=== PATIENT | female | born 1985 ===

== ENCOUNTER 2019-07-01 22:07 | Inpatient (IN) | payer MEDICARE, SELFPAY ==
--- NOTE | 2019-07-01 22:15 | DI.CT_ITS ---
EXAM: CT HEAD WO CLINICAL HISTORY: altered, confused. TECHNIQUE: Imaging Protocol: Axial computed tomography images with coronal and sagittal reformatted images were created and reviewed COMPARISON: No exams were available for comparison FINDINGS: The ventricular system is normal in appearance. No evidence of acute intracranial hemorrhage, mass effect, or midline shift. The orbital structures are unremarkable. The temporal bone structures appear intact. Calvarium: Normal. Visualized Paranasal sinuses/Mastoids: Clear. IMPRESSION: Normal cranial CT. RADIATION DOSE DELIVERED: Total DLP DATA REPOSITORY: All CT scans at this facility are submitted to the National Radiology Data Registry (NRDR) Dose Index Registry (DIR) with the [employer] (ACR). RADIATION OPTIMIZATION: All CT scans at this facility use at least one of these dose optimization te chniques: automated exposure control; mA and/or kV adjustment per patient size (includes targeted exa ms where dose is matched to clinical indication); or iterative reconstruction.
--- NOTE | 2019-07-01 22:16 | DI.RAD_ITS ---
EXAM: XR CHEST 1V IN DI DEPT CLINICAL HISTORY: altered, confused. TECHNIQUE: 2D digital imaging was performed. COMPARISON: No exams were available for comparison FINDINGS: LUNGS: Clear. No pleural abnormality seen. HEART: Normal. MEDIASTINUM: Normal. OTHER FINDINGS: None. IMPRESSION: No acute pulmonary findings. DATA REPOSITORY: RADIATION DOSE DELIVERED:
--- NOTE | 2019-07-01 22:23 | ED.GENADUL_ITS ---
Discharge Plan Disposition Patient Disposition: [facility] INPATIENT Condition: Stable Discharge Details Chief Complaint: AMS/LOC Clinical Impression: Acute alteration in mental status, Anemia, Sickle cell anemia with crisis Primary Care Provider: Laney,Local ED Provider: Karnthi Botello Home Meds and New Rx's Prescriptions: No Action folic acid 1 mg Tablet 1 mg PO DAILY RF: 0 ibuprofen 600 mg Tablet 600 mg PO Q6H PRNRF: 0 oxycodone 10 mg Tablet 10 mg PO Q4H PRNRF: 0 B12 5,000-100 mcg Lozenge SUBLINGUAL RF: 0 hydroxyurea (sickle cell) 1,000 mg Tablet 1,000 mg PO DAILY RF: 0 Medical Decision Making This is a 34-year-old -Luxembourger female who is a notably poor historian with a known past medical history of sickle cell disease, who presents today for altered mental status. Per [facility] police [place] car had run out of gas. Upon their encounter she thought she was still in [place], thought her children were with her, which they were not, and was notably unaware of the current situation. She had no complaints at that time, and was not able to explain what was going on at all, was notably confused. She was brought to the ER for further evaluation. Upon EMSs evaluation she was ANO x3, vital signs are stable blood sugar normal, she was brought to the ER for further evaluation. Patient is a notably poor historian with poor insight at this time, she has no complaints in particular review of systems does bring about mild complaint of frontal headache. She denies neck pain chest pain shortness of breath abdominal pain nausea, vomiting, diarrhea, fever or chills. She denies IV or illicit drug use, alcohol use, or other abnormality. She does not know why she is up here, she does not know where her children are. She is unable to add anything additional to the history. Physical exam demonstrates no focal neurologic deficits, no nuchal rigidity, no meningiomas. Mental status is certainly altered though, she is ANO x3 however she definitely has atypical thinking with multiple verbal statements saying that her children are under the seats of her car, in heaven, and right beside her. She also keeps talking about her recent conversations with her mother who is actually been for some time. Mucous membranes are mildly dry, differential is notably broad. Patient does not demonstrate clinical evidence of meningitis at this time, uncertain if there is a mental health or psychiatric issue at play, versus a metabolic etiology. Patient is from [place], we otherwise do not know her history, coronavirus is on the differential but unlikely. She does have a known history of sickle cell disease, could be a component of a sickling crisis at this time however her otherwise general lack of pain would make this slightly less likely. We will rehydrate, evaluate with CT imaging of the head, laboratory work-up. No current clinical indication for lumbar puncture. [place] [employer] has provided us with a phone number of her Andre, whom we we contacted for additional information, he does state that the patient may have a history of bipolar depression but states that she has never had any altered mental state. He is uncertain what the patient's children are. We will continue to monitor closely and reassess. We will evaluate for coronavirus. 11:50 PM We have again been contacted by [place] [employer], and it appears that Andre's actually her ex-, and there is a no contact order that has been put in place between them. This was discussed with the [facility] police by the [facility] police. When reviewed with the patient she made it clear that she does not want any information to be discussed with him at this time. However the patient's next of kin are her brother Steve, and her daughter jeff. Per [place] [employer] police have been contacted, the patient's children are safe in [place]. We were able to get a home address, and when contacting the local hospitals we were able to procure HPI from last year when the patient had a sickle cell crisis. Per review of records at that time does appear that she had a blood clot during in the past which was provoked and is not on anticoagulation, has required transfusions for sickle cell crisis, multiple episodes of sickle cell crisis, and chronic hyperbilirubinemia but no other significant psychiatric history can be elicited from that HPI. Of note there is been a notable delay in the laboratory work-up as the patient has had multiple episodes of hemolysis of the blood that has been drawn. 2 AM Laboratory work-up has returned, patient's hemoglobin is 7.8, platelets 559, reticulocyte count notably elevated at 10.9, renal function stable, lactate normal, lactate dehydrogenase elevated at 381. Troponin normal. CRP negative, pending urinalysis urine drug screen. Alcohol level normal. Procalcitonin normal. With no evidence of significant elevation in infection markers, and wit h the patient's hemoglobin being 7.8, certainly does shift my differential to a sickle cell crisis and dehydration potentially causing her mental status changes. Symptoms at this time appear inconsistent with an infectious etiology. Based on exam and disposition at this time there is no clinical indication for lumbar puncture. Psychiatric episode is certainly not been ruled out though. CT scan of the head is negative for acute process per virtual radiology's x-ray of the chest shows no evidence of infiltrate per virtual radiology. We will type and screen, start 2 units of PRBCs, she has been hydrated with 2 L of normal saline at this point. Mental status is unchanged currently. Will contact hospitalist for admission. Of note the patient's d-dimer is elevated, this was ordered for further evaluation of coronavirus. Clinically she does not demonstrate signs or symptoms concerning for PE. She denies chest pain, she has no tachycardia, tachypnea, hypoxemia. At this time I feel that her signs and symptoms seem to be clinically consistent with sickle cell crisis, notable dehydration. 2:30 AM I have contacted the hospitalist Dr. Kovacs, which discussed the case together in depth. Patient will be admitted for further management and evaluation, continued blood administration. I have extensively reviewed the treatment plan with the patient. I have addressed all patient concerns at this time. I have also discussed the plan with the admitting physician and they agree with the current assessment and plan and have agreed to assume responsibility for the patient. All parties demonstrate verbal understanding and agreement with our assessment and plan at this time. EKG 23: 29 Rate 91, intervals normal, sinus rhythm, inverted T wave in V1, no significant ST elevations or depressions, inverted T wave also present in lead III. No significant depression though. No signs of STEMI. FINDINGS: Lungs: Unremarkable. No consolidation. Pleural space: Unremarkable. No pleural effusion. No pneumothorax. Heart/Mediastinum: Unremarkable. No cardiomegaly. Bones/joints: Unremarkable. IMPRESSION: No acute findings. Thank you for allowing us to participate in the care of your patient. Dictated and Authenticated by: Jose Bruce MD 07/01/2019 11:38 PM Eastern Time ([place] & [place]) FINDINGS: Brain: Normal. No hemorrhage. Unremarkable white matter. No mass effect. Ventricles: Normal. No ventriculomegaly. Bones/joints: Unremarkable. No acute fracture. Sinuses: Visualized sinuses are unremarkable. No fluid levels. Mastoid air cells: Visualized mastoid air cells are well aerated. Soft tissues: Unremarkable. IMPRESSION: No acute intracranial abnormality. Thank you for allowing us to participate in the care of your patient. Dictated and Authenticated by: Jose Bruce MD 07/01/2019 11:37 PM Eastern Time ([place] & [place]) HPI General Date/Time Provider Initiated Documentation: 07/01/19 22:14 . HPI Narrative: This is a 34-year-old -Luxembourger female who is a notably poor historian with a known past medical history of sickle cell disease, who presents today for altered mental status. Per [facility] police she [place] car had run out of gas. Upon their encounter she thought she was still in [place], thought her children were with her, which they were not, and was notably unaware of the current situation. She had no complaints at that time, and was not able to explain what was going on at all, w as notably confused. She was brought to the ER for further evaluation. Upon EMSs evaluation she was ANO x3, vital signs are stable blood sugar normal, she was brought to the ER for further evaluation. Patient is a notably poor historian with poor insight at this time, she has no complaints in particular review of systems does bring about mild complaint of frontal headache. She denies neck pain chest pain shortness of breath abdominal pain nausea, vomiting, diarrhea, fever or chills. She denies IV or illicit drug use, alcohol use, or other abnormality. She does not know why she is up here, she does not know where her children are. She is unable to add anything additional to the history. Related Data Home Medications Medication Instructions Recorded Confirmed cyanocobalamin-cobamamide [B12] leta SUBLINGUAL 07/02/19 folic acid 1 mg PO DAILY 07/02/19 07/02/19 hydroxyurea (sickle cell) 1,000 mg PO DAILY 07/02/19 07/02/19 ibuprofen 600 mg PO Q6H PRN 07/02/19 07/02/19 oxycodone 10 mg PO Q4H PRN 07/02/19 07/02/19 Allergies Allergy/AdvReac Type Severity Reaction Status Date / Time No Known Allergies Allergy Unverified 07/01/19 23:59 Review of Systems All systems reviewed & are unremarkable except as noted in HPI and below PFSH Medical History (Updated 07/02/19 @ 02:50 by Darlene Ricci) Anemia, chronic disease (Acute) Herpes (Acute) Pulmonary embolism (Chronic) Sickle cell anemia with crisis (Acute) Surgical History (Updated 07/02/19 @ 02:52 by Darlene Ricci) History of cholecystectomy (Chronic) Social History Smoking/Tobacco Use Status: Never Alcohol Intake: never Substance use type: does not use Do you feel safe at home: Yes Do you feel safe in your relationship?: Yes Additional Social history: above as answered by pt Exam Narrative Exam Narrative: 1.Const: Well-nourished, Well-developed, appearing stated age 2.Eyes: PERRL, no conjunctival injection, and symmetrical lids. 3.ENT: Atraumatic external nose and ears. Moist MM. Neck: Symmetric, trachea midline, No thyromegaly. Patient demonstrates good movement of cervical neck. There is no nuchal rigidity, no nuchal tenderness. Patient is able to flex the neck without any difficulty or significant pain. Negative Kernig's and Brudzinski sign. There is no evidence of raccoon eyes, olivier sign, CSF rhinorrhea, mastoid tenderness, cranial crepitus, hemotympanum, exophthalmos, or hyphema. Patient demonstrates intact dentition with no signs of tooth avulsion or fracture, no signs of jaw deformity, no evidence of a LeFort's fracture, with an intact palate, nose and orbital region. There is no evidence of a nasal septal hematoma. No proptosis. Jaw closes symmetrically. Airway is clear. 4.CVS: +S1/S2, No murmurs or gallops. Peripheral pulses 2+ and equal in all extremities. Brisk capillary refill in all extremities. 5.RESP: Unlabored respiratory effort. Clear to auscultation bilaterally. No wheezes rales or rhonchi 6.GI: Soft, Nontender/Nondistended, No hepatosplenomegaly. No guarding or rebound. 7.MSK: Normocephalic/Atraumatic, Extremities w/o deformity or ttp No cyanosis or clubbing, Normal movement of all extremities 8.Skin: Warm, Dry. No rashes or lesions. 9.Neuro: windows desktop engineer II-XII grossly intact. Sensation grossly intact, no focal neurologic deficits. All 6 cardinal planes of vision are fully intact. No evidence of rotatory or vertical nystagmus. The patient demonstrated a normal rgljvw-onjq-vigpez, good dexterity. There was no evidence of dysdiadochokinesia. Patient was able to ambulate without difficulty. There was no wide-based gait. Romberg testing was normal. Wxif-ax-mopr testing was normal. Sensation was intact bilaterally as well as muscle strength bilaterally for all extremities. Patient was able to verbalize butter cup with no slurring, or miss pronunciation. 10.Psych: (AAO) x3, she knows the month, year, president, but does not know the current location. She certainly lacks insight. To the nurse she has been been making statements that her children are in heaven, but at the same time the right here with her. She has had makes other atypical statements that they are under the seat in her car. She also states that she has been calling her mother however the mother has actually been for the last few years. Course Lab/Test Results Lab/Test Results: 07/01/19 22:15 Blood Blood Culture - Pending 07/01/19 22:15 Blood Blood Culture - Pending
[2019-07-01] MEDS: Normal Saline 1,000 ML 1000 ML IV (22:30)
[2019-07-01 22:55] VITALS: BP 110/68; PULSE 81; RESP 16; TEMP 36.3; O2SAT 97
[2019-07-01 23:24] VITALS: RESP 14
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
--- NOTE | 2019-07-01 23:37 | DI.VRAD_ITS ---
PROCEDURE INFORMATION: Exam: CT Head Without Contrast Exam date and time: 07/01/2019 11:20 PM Age: 34 years old Clinical indication: Other: Altered, confused TECHNIQUE: Imaging protocol: Computed tomography of the head without contrast. COMPARISON: No relevant prior studies available. FINDINGS: Brain: Normal. No hemorrhage. Unremarkable white matter. No mass effect. Ventricles: Normal. No ventriculomegaly. Bones/joints: Unremarkable. No acute fracture. Sinuses: Visualized sinuses are unremarkable. No fluid levels. Mastoid air cells: Visualized mastoid air cells are well aerated. Soft tissues: Unremarkable. IMPRESSION: No acute intracranial abnormality. Dictated and Authenticated by: Jose Bruce MD. Ordering:FAHAD Crisostomo MD
--- NOTE | 2019-07-01 23:38 | DI.VRAD_ITS ---
PROCEDURE INFORMATION: Exam: XR Chest, 1 View Exam date and time: 07/01/2019 11:16 PM Age: 34 years old Clinical indication: Other: Altered, confused TECHNIQUE: Imaging protocol: XR of the chest Views: 1 view. COMPARISON: No relevant prior studies available. FINDINGS: Lungs: Unremarkable. No consolidation. Pleural space: Unremarkable. No pleural effusion. No pneumothorax. Heart/Mediastinum: Unremarkable. No cardiomegaly. Bones/joints: Unremarkable. IMPRESSION: No acute findings. Dictated and Authenticated by: Jose Bruce MD. Ordering:FAHAD Crisostomo MD
--- NOTE | 2019-07-01 23:46 | NUR.NOTE ---
Nursing Note: pt back and forth to the bathroom- instructed to give urine sample. Did not leave sample, though urinated and flushed.
[2019-07-01 23:48] VITALS: PULSE 87; RESP 20; O2SAT 97
[2019-07-01 23:50] VITALS: PULSE 86; RESP 21
[2019-07-02] VITALS (46 sets, daily range): BP systolic 97–131; BP diastolic 61–91; PULSE 73–115; RESP 12–23; TEMP 36.1–37.4; O2SAT 93–100
[2019-07-02] MEDS: Normal Saline 1,000 ML 1000 ML IV (00:15)
--- NOTE | 2019-07-02 00:37 | NUR.NOTE ---
Nursing Note: Pt has had multiple phone calls from seven who claims to be her . Per VSP, this is ex and has order of no contact. Per [facility], no information to be given regarding pt or children. Seven was quite irate in hearing no further information could be given no one gets information about her except through me- directed to nursing stocking and box shop supervisor for further phone call and to place complaint about this medical underwriter.
--- NOTE | 2019-07-02 00:46 | NUR.NOTE ---
Nursing Note: Asked pt is there was anyone I could call for her, pt stated no. Asked if she had family, pt stated My mother, but she's .
--- NOTE | 2019-07-02 00:49 | NUR.NOTE ---
Nursing Note: Pt asked who Andre was, states he's my kids father. I asked pt directly if she would want him to have any information about her care or treatment here today- pt states no. This conversation happened in the presence of Darlene Rosales and Carolyn. Floor Scrubber aware.
[2019-07-02 00:50] LABS: BE (Venous) -0.6 mmol/L (-3-3); HCO3 (Venous) 24 mmol/L (22-28); O2 Sat (Venous) 83 % (70-80); TCO2 (Venous) 23 mmol/L (22-29); pCO2 (Venous) 39 mm/Hg (34-47); pO2 (Venous) 54 mm/Hg (28-44)
[2019-07-02 00:57] LABS: Lactate 0.8 mmol/L (0.6-1.4)
[2019-07-02 01:13] LABS: Ammonia < 10 umol/L (11-32)
[2019-07-02 01:17] LABS: HCT 22.5 % (36.0-46.0); HGB 7.8 g/dL (12.0-15.5); Mean Corp. HGB Concentration 34.7 g/dL (32.0-36.0); Mean Corpuscular Hemoglobin 29.7 pg (27.0-33.0); Mean Corpuscular Volume 85.6 fL (80-95); Mean Platelet Volume 8.5 fL (8.0-11.0); RBC 2.63 m/cumm (4.00-5.20); RBC Distribution Width 20.1 % (11.7-14.6); Reticulocyte 10.9 % (0.5-2.4); White Blood Cell Count 13.76 k/cumm (4.4-10.8)
--- NOTE | 2019-07-02 01:21 | NUR.NOTE ---
Nursing Note: Patient's estranged , Andre Bonilla, was transferred to this scribe after asking to speak to supervisor motorcycle repair shop. Per report of ER staff, [facility] Police had advised ER staff to not release information about the patient to Andre after learning of a restraining order placed by patient on her . This information was found out after patient's had been notified by police and then updated by ER staff. Andre was very angry and yelling that he has a right to know about the mother of his children. This scribe attempted multiple times to explain about privacy laws and that we are not able to give him any information. Upon learning about the restraining order, this scribe advised Andre that he should contact [facility] Police if he has any additional questions. Andre stated he would have his contractor field hauling call the hospital and hung up. Moments later, Andre's sister (the patient's sister in law), called and insisted on speaking to a supervisor motorcycle repair shop and began to yell that she has a right as a family member to have access to her sister in law's condition. This scribe again, attempted to explain HIPPA. The patient's sister in law began to yell stating that the patient does not have a restraining order on her, so she should be able to know why Shaylee is in a mental hospital having delusions. This scribe eventually had to end the call as both the sister in law and her brother (Andre) were yelling into the phone. Jeyson then called a few moments later stating that she was getting an influx of calls from different family members on the patient's ex's family demanding information. This scribe then called [facility] Police, the officer who found the patient and advised the ER of the restraining order, the officer was given the phone numbers provided by the estranged and he stated he would call to ask that they not call the hospital any longer.
[2019-07-02 01:22] LABS: ALT 28 U/L (14-59); AST 30 U/L (15-37); Albumin 3.9 g/dL (3.4-5.0); Alkaline Phosphatase 63 U/L (46-116); Anion Gap 8.7 mmol/L (3-11); BUN 7 mg/dL (7-18); Bilirubin, Total 8.6 mg/dL (0.2-1.0); CO2 24.3 mmol/L (21.0-32.0); CREATININE 0.43 mg/dL (0.55-1.02); Calcium 8.6 mg/dL (8.5-10.1); Chloride 108 mmol/L (98-107); Glucose 87 mg/dL (74-106); Sodium 141 mmol/L (136-145); TSH (W/Ref FT4) 0.32 uIU/mL (0.36-3.74); Total Protein 7.8 g/dL (6.4-8.2)
[2019-07-02 01:23] LABS: INR 1.1 (0.9-1.1); PTT Activated 21.4 sec (21.0-31.4); Prothrombin Time 11.2 sec (9.3-11.0); Troponin I < 0.05 ng/Ml (<0.06)
[2019-07-02 01:26] LABS: Bilirubin, Direct 0.44 mg/dL (0.00-0.20); C-Reactive Protein 0.32 mg/dL (0.0-0.3); LDH 381 U/L (81-234)
[2019-07-02 01:35] LABS: Procalcitonin < 0.1 ng/mL
[2019-07-02 01:43] LABS: Absolute Lymphocyte Count 5.09 k/cumm (1.2-3.4); Absolute Neutrophil Count 6.47 k/cumm (1.2-6.7); D-Dimer 741 ng/mlFEU (<500)
[2019-07-02 01:44] LABS: Absolute Basophil Count 0.28 k/cumm (0.0-0.2); Absolute Monocyte Count 1.79 k/cumm (0.11-0.7)
[2019-07-02 01:45] LABS: Anisocytosis 1+; Diff Comment Manual Differential; Hypochromasia 2+; Nucleated RBC 3 /100WBC; Platelet Count 559 x1000/uL (130-400)
[2019-07-02 01:46] LABS: Poikilocytes 1+
[2019-07-02 01:51] LABS: ETHANOL BLOOD < 3.0 mg/dL (<3)
[2019-07-02 01:53] LABS: Ferritin 164 ng/mL (8-252)
[2019-07-02 02:10] LABS: FREE T4 0.95 ng/dL (0.76-1.46)
[2019-07-02 02:11] LABS: Acetaminophen < 2 ug/mL (10-30); Salicylate < 2.8 mg/dL (2.8-20.0)
[2019-07-02 02:27] LABS: Bilirubin Negative (Negative); Blood Negative (Negative); Clarity Clear (Clear); Glucose Negative (Negative); Ketones 40 mg/dL (Negative); Leukocyte Esterase Negative (Negative); Nitrite Negative (Negative); Specific Gravity 1.025 (1.005-1.025)
[2019-07-02 02:37] LABS: *AMPHETAMINES SCREEN URINE Negative (Negative); *BARBITURATES SCREEN URINE Negative (Negative); *BENZODIAZEPINES SCREEN URINE Negative (Negative); Cannabinoids THC Negative (Negative); Cocaine Screen,Urine Negative (Negative); METHADONE URINE SCREEN Negative (Negative); OPIATES URINE SCREEN Negative (Negative)
[2019-07-02 02:42] LABS: Tricyclic Antidepressants Negative (Negative)
[2019-07-02] MEDS: Normal Saline 1,000 ML 85 ML IV (04:12)
--- NOTE | 2019-07-02 07:32 | NUR.NOTE ---
PT NEEDING 2 UNITS OF BLOOD FOR A SICKLE CELL CRISIS. PT IS NOT ORIENTED AND HAS CONFUSION. CONTACTED NURSING CURATORIAL SPECIALIST ABOUT APPROPRIATE WAY TO PROCEED SINCE PT UNABLE TO SIGN CONSENT. BESIDES CONFUSION PT IS WEAK AND VERY TIRED. PROTOCOL PRINTED OUT BY NURSING CURATORIAL SPECIALIST AND TEXT APPLICABLE TO UNOBTAINABLE WRITTEN CONSENT AND EMERGENT TREATMENT WAS HIGHLIGHTED AND ATTACHED TO CONSENT FORM. FURTHER NOTES FROM ER MD NOTED THAT THE PLAN FOR ADMISSION WAS REVIEWED WITH DR COLE AND THE PT AND ALL WERE IN AGREEMENT INCLUDING BLOOD TRANSFUSION. THIS WAREHOUSE PERSON ALSO CALLED DR COLE WHO CONFIRMED PT IS IN REAL NEED OF TRANFUSION. NURSING CURATORIAL SPECIALIST ALSO TALKED TO ER MD DR TOTH. THE ORDER WAS PUT IN UNDER EMERGENT CONSENT. A COPY OF THIS ORDER WAS ATTACHED TO THE BLOOD CONSENT FORM AND 2 NURSES KYLER HESTER AND PATRICK MARCUM BOTH RNs TALKED TO PT PRIOR TO BLOOD ADMINISTRATION. ASKING PT IF SHE REMEMBERED TALKING WITH THE MD ABOUT HAVING A BLOOD TRANSFUSION PT DID REMEMBER AND SAID OKAY. THIS WAS NOTED ON THE BLOOD CONSENT FORM AND SIGNED BY BOTH NURSES. PT HAS HAD TO HAVE TRASNFUSION BEFORE FOR SICLE CELL CRISIS.HGB 7.8, UNABLE TO OBTAIN NEXT OF KIN SIGNATURE. Nursing Note:
[2019-07-02] MEDS: Folic Acid 1 MG TAB PO (08:15)
[2019-07-02] MEDS: Pantoprazole 40 MG TABCR PO (08:15)
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
[2019-07-02] MEDS: Ibuprofen 600 MG TAB PO (08:26)
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
[2019-07-02] MEDS: Hydroxyurea 500 MG CAP 1000 MG PO (10:04)
[2019-07-02] MEDS: Acetaminophen 325 MG TAB PO (10:35)
[2019-07-02] MEDS: Normal Saline Flush 10 ML SYR (11:37)
[2019-07-02] MEDS: SODIUM CHLORIDE 0.45% 1,000 ML 125 ML IV ×2 (11:38→21:44)
--- NOTE | 2019-07-02 12:46 | PHA.REVIEW ---
Pharmacy Admission Review - Admission Clinical Review (Last Updated 07/02/19 @ 08:51 by Tan Kovacs) Acute alteration in mental status (Acute) Sickle cell anemia with crisis (Acute) No Known Allergies Allergy (Unverified 07/01/19 23:59) Height 5 ft 2 in Weight 45.8 kg - Renal Dosing Renal Dosing: BUN 7 mg/dL (7-18) 07/02/19 00:45 Creatinine 0.43 mg/dL (0.55-1.02) L 07/02/19 00:45 Medications needing adjustments: Reviewed (est CrCl~71.64 mL/min HYDROXYUREA DOSE OK) - Anticoagulation Anticoagulation: Hgb 7.8 g/dL (12.0-15.5) L 07/02/19 00:45 Hct 22.5 % (36.0-46.0) L 07/02/19 00:45 Plt Count 559 x1000/uL (130-400) H 07/02/19 00:45 INR 1.1 (0.9-1.1) 07/02/19 00:45 Creatinine 0.43 mg/dL (0.55-1.02) L 07/02/19 00:45 DVT Prohphylaxis: Reviewed (has Sickle Cell) - Opiate Usage Evaluate Pain Scale/Pains Meds: Reviewed (Dilaudid IV) Scheduled Bowel Reg ordered if on Opiates?: Yes - Relevant Labs Sodium 141 mmol/L (136-145) 07/02/19 00:45 Potassium 4.0 mmol/L (3.5-5.1) 07/02/19 00:45 Chloride 108 mmol/L (98-107) H 07/02/19 00:45 C-Reactive Protein 0.32 mg/dL (0.0-0.3) H 07/02/19 00:45 Electrolytes, C-Reactive P, ESR: Reviewed (Neutrophils 46.0) - DM Control DM Control: Glucose 87 mg/dL (74-106) 07/02/19 00:45 Insulin Dosing: N/A - Heart Failure/AK Heart Failure/AK: Troponin I < 0.05 ng/Ml (<0.06) 07/02/19 00:45 EF%, MARCY's, B-Blockers, Diuretics: N/A - BP Control BP Control: Blood Pressure 100/70 Blood Pressure 115/72 Blood Pressure 119/81 Blood Pressure 109/76 Blood Pressure 131/91 Blood Pressure 113/71 Blood Pressure 112/74 Blood Pressure 112/73 Blood Pressure 114/75 Blood Pressure 101/67 Blood Pressure 107/69 Blood Pressure 100/65 Blood Pressure 100/65 Blood Pressure 97/61 Blood Pressure 100/62 Blood Pressure 103/65 Blood Pressure 103/65 Blood Pressure 117/75 Blood Pressure 117/75 Blood Pressure 117/66 Blood Pressure 117/65 Blood Pressure 111/67 Blood Pressure 117/74 Blood Pressure 109/68 Blood Pressure 112/68 If elevated: N/A - Qtc Review If Elevated: Reviewed (QTc-453 (Protonix)) - Home Meds Home Med List reviewed: Reviewed (ordered and OK Called [facility] in [place]) - Comments Comments/Follow Ups: Patient to get MRI Hx of brain injury ???
--- NOTE | 2019-07-02 13:16 | CHAPLAIN ---
Shaylee was eating lunch when I visited. She seems younger than 34 and also seemed confused at times. She didn't realizes she was in [place], saying she's wasn't sure she was in [place] yet. 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 She also talked about wanting to visit the chapel and see [place]ul[place]. Shaylee was very pleasant during our visit and engaged easily, but was slow in responding some at times.
--- NOTE | 2019-07-02 14:35 | W.PM.PROGNOT ---
Date of Service Date of service: 07/02/19 Time of Service: 14:36 Subjective Subjective Interval history since last seen: Ms Barajas remains confused today - but overall getting a little bit better. She is A&Ox3, has no recollection as to why she was driving to [place]. She is able to move arms and legs for me, though she was stating to nursing this morning that it was difficult/painful to move her arms. She reports a slight headache and sensitivity to light, better when we lowered shades in the room. She has no neck pain, arm pain, or knee pain at this time (reported knee pain to nursing earlier). She states that she has had episodes of driving and not knowing how she got home before. Review of records from PCP reveal that she had an MRI on 02/11/2019 showing a L frontal lobe lesion. Neurology and psychiatry are both consulted. Will order EEG, await MRI brain. Objective Objective Clinical Data: Abnormal lab results 07/02/19 07/02/19 07/02/19 Range/Units 00:45 00:45 00:45 WBC 13.76 H (4.4-10.8) k/cumm RBC 2.63 L (4.00-5.20) m/cumm Hgb 7.8 L (12.0-15.5) g/dL Hct 22.5 L (36.0-46.0) % RDW 20.1 H (11.7-14.6) % Plt Count 559 H (130-400) x1000/uL Absolute Lymphocytes 5.09 H (1.2-3.4) k/cumm Absolute Monocytes 1.79 H (0.11-0.7) k/cumm Absolute Basophils 0.28 H (0.0-0.2) k/cumm Retic Count 10.9 H (0.5-2.4) % PT (9.3-11.0) sec D-Dimer (<500) ng/mlFEU VBG pO2 (28-44) mm/Hg VBG O2 Saturation (70-80) % Chloride 108 H (98-107) mmol/L Creatinine 0.43 L (0.55-1.02) mg/dL Total Bilirubin 8.6 H (0.2-1.0) mg/dL Conjugated Bilirubin (0.00-0.20) mg/dL Ammonia < 10 L (11-32) umol/L Lactate Dehydrogenase (81-234) U/L C-Reactive Protein (0.0-0.3) mg/dL TSH 0.32 L (0.36-3.74) uIU/mL Urine Ketones (Negative) mg/dL Urine Urobilinogen (Up TO 0.2) EU/dL Crossmatch 07/02/19 07/02/19 07/02/19 Range/Units 00:45 00:45 00:45 WBC (4.4-10.8) k/cumm RBC (4.00-5.20) m/cumm Hgb (12.0-15.5) g/dL Hct (36.0-46.0) % RDW (11.7-14.6) % Plt Count (130-400) x1000/uL Absolute Lymphocytes (1.2-3.4) k/cumm Absolute Monocytes (0.11-0.7) k/cumm Absolute Basophils (0.0-0.2) k/cumm Retic Count (0.5-2.4) % PT 11.2 H (9.3-11.0) sec D-Dimer 741 H (<500) ng/mlFEU VBG pO2 54 H (28-44) mm/Hg VBG O2 Saturation 83 H (70-80) % Chloride (98-107) mmol/L Creatinine (0.55-1.02) mg/dL Total Bilirubin (0.2-1.0) mg/dL Conjugated Bilirubin (0.00-0.20) mg/dL Ammonia (11-32) umol/L Lactate Dehydrogenase 381 H (81-234) U/L C-Reactive Protein 0.32 H (0.0-0.3) mg/dL TSH (0.36-3.74) uIU/mL Urine Ketones (Negative) mg/dL Urine Urobilinogen (Up TO 0.2) EU/dL Crossmatch 07/02/19 07/02/19 07/02/19 Range/Units 00:45 01:34 02:03 WBC (4.4-10.8) k/cumm RBC (4.00-5.20) m/cumm Hgb (12.0-15.5) g/dL Hct (36.0-46.0) % RDW (11.7-14.6) % Plt Count (130-400) x1000/uL Absolute Lymphocytes (1.2-3.4) k/cumm Absolute Monocytes (0.11-0.7) k/cumm Absolute Basophils (0.0-0.2) k/cumm Retic Count (0.5-2.4) % PT (9.3-11.0) sec D-Dimer (<500) ng/mlFEU VBG pO2 (28-44) mm/Hg VBG O2 Saturation (70-80) % Chloride (98-107) mmol/L Creatinine (0.55-1.02) mg/dL Total Bilirubin (0.2-1.0) mg/dL Conjugated Bilirubin 0.44 H (0.00-0.20) mg/dL Ammonia (11-32) umol/L Lactate Dehydrogenase (81-234) U/L C-Reactive Protein (0.0-0.3) mg/dL TSH (0.36-3.74) uIU/mL Urine Ketones 40 H (Negative) mg/dL Urine Urobilinogen 1.0 H (Up TO 0.2) EU/dL Crossmatch See Detail Vital Signs Temperature 37.1 C 07/02/19 12:41 Temperature Source Tympanic 07/02/19 12:38 Pulse 80 07/02/19 12:41 Pulse Rhythm Regular 07/02/19 07:55 Pulse 95 H 07/02/19 03:01 Respiratory Rate 14 07/02/19 12:41 Respiratory Effort 07/02/19 07:55 Respiratory Depth Normal 07/02/19 07:55 Respiratory Pattern Normal 07/02/19 07:55 Blood Pressure 100/70 07/02/19 12:41 Blood Pressure Mean 76 07/02/19 03:00 Blood Pressure Position Supine 07/01/19 22:55 Pulse Oximetry 97 07/02/19 12:41 Oxygen Delivery Method Room Air 07/02/19 12:41 Oxygen Flow Rate 0 07/02/19 12:41 Pain Level 0 07/02/19 12:38 Comment 07/02/19 11:29 Intake & Output 07/01/19 07/02/19 07/02/19 23:59 11:59 23:59 Intake Total 1010 / 1010 1770 / 2360 590 / 2360 Output Total 600 / 600 Balance 1010 / 1010 1170 / 1760 590 / 1760 Weight 45.813 kg 45.8 kg Intake: IV 1010 / 1010 1000 / 1000 Oral 420 / 660 240 / 660 Blood Product 350 / 700 350 / 700 Rbc Leuko Reduced Unit 350 / 350 [id number] Rbc Leuko Reduced Unit 350 / 350 [id number] Output: Urine 600 / 600 Other: Urine Appearance Clear Comment large amount urine mixed with stool Stool Characteristics Liquid Brown Laboratory Results WBC 13.76 k/cumm (4.4-10.8) H 07/02/19 00:45 RBC 2.63 m/cumm (4.00-5.20) L 07/02/19 00:45 Hgb 7.8 g/dL (12.0-15.5) L 07/02/19 00:45 Hct 22.5 % (36.0-46.0) L 07/02/19 00:45 MCV 85.6 fL (80-95) 07/02/19 00:45 MCH 29.7 pg (27.0-33.0) 07/02/19 00:45 MCHC 34.7 g/dL (32.0-36.0) 07/02/19 00:45 RDW 20.1 % (11.7-14.6) H 07/02/19 00:45 Plt Count 559 x1000/uL (130-400) H 07/02/19 00:45 MPV 8.5 fL (8.0-11.0) 07/02/19 00:45 Immature Gran % See Differential 07/02/19 00:45 Neutrophils % 46.0 07/02/19 00:45 Band Neutrophils % 1.0 % 07/02/19 00:45 Lymphocytes % 37.0 07/02/19 00:45 Monocytes % 13.0 07/02/19 00:45 Eosinophils % 0.0 07/02/19 00:45 Basophils % 2.0 07/02/19 00:45 Absolute Neutrophils 6.47 k/cumm (1.2-6.7) 07/02/19 00:45 Absolute Lymphocytes 5.09 k/cumm (1.2-3.4) H 07/02/19 00:45 Absolute Monocytes 1.79 k/cumm (0.11-0.7) H 07/02/19 00:45 Absolute Eosinophils 0.00 k/cumm (0.0-0.7) 07/02/19 00:45 Absolute Basophils 0.28 k/cumm (0.0-0.2) H 07/02/19 00:45 Nucleated RBCs 3 /100WBC 07/02/19 00:45 Differential Comment Manual differential 07/02/19 00:45 RBC Morphology See below 07/02/19 00:45 Hypochromasia 2+ 07/02/19 00:45 Poikilocytosis 1+ 07/02/19 00:45 Anisocytosis 1+ 07/02/19 00:45 Retic Count 10.9 % (0.5-2.4) H 07/02/19 00:45 PT 11.2 sec (9.3-11.0) H 07/02/19 00:45 INR 1.1 (0.9-1.1) 07/02/19 00:45 APTT 21.4 sec (21.0-31.4) 07/02/19 00:45 D-Dimer 741 ng/mlFEU (<500) H 07/02/19 00:45 VBG pH 7.40 (7.35-7.45) 07/02/19 00:45 VBG pCO2 39 mm/Hg (34-47) 07/02/19 00:45 VBG pO2 54 mm/Hg (28-44) H 07/02/19 00:45 VBG HCO3 24 mmol/L (22-28) 07/02/19 00:45 VBG Total CO2 23 mmol/L (22-29) 07/02/19 00:45 VBG O2 Saturation 83 % (70-80) H 07/02/19 00:45 VBG Base Excess -0.6 mmol/L (-3-3) 07/02/19 00:45 Sodium 141 mmol/L (136-145) 07/02/19 00:45 Potassium 4.0 mmol/L (3.5-5.1) 07/02/19 00:45 Chloride 108 mmol/L (98-107) H 07/02/19 00:45 Carbon Dioxide 24.3 mmol/L (21.0-32.0) 07/02/19 00:45 Anion Gap 8.7 mmol/L (3-11) 07/02/19 00:45 BUN 7 mg/dL (7-18) 07/02/19 00:45 Creatinine 0.43 mg/dL (0.55-1.02) L 07/02/19 00:45 Estimated GFR/1.73 m2 >= 60.00 (mL/min/1.73m2) 07/02/19 00:45 Glucose 87 mg/dL (74-106) 07/02/19 00:45 Lactate 0.8 mmol/L (0.6-1.4) 07/02/19 00:45 Calcium 8.6 mg/dL (8.5-10.1) 07/02/19 00:45 Ferritin 164 ng/mL (8-252) 07/02/19 00:45 Total Bilirubin 8.6 mg/dL (0.2-1.0) H 07/02/19 00:45 Conjugated Bilirubin 0.44 mg/dL (0.00-0.20) H 07/02/19 00:45 AST 30 U/L (15-37) 07/02/19 00:45 ALT 28 U/L (14-59) 07/02/19 00:45 Alkaline Phosphatase 63 U/L (46-116) 07/02/19 00:45 Ammonia < 10 umol/L (11-32) L 07/02/19 00:45 Lactate Dehydrogenase 381 U/L (81-234) H 07/02/19 00:45 Troponin I < 0.05 ng/Ml (<0.06) 07/02/19 00:45 C-Reactive Protein 0.32 mg/dL (0.0-0.3) H 07/02/19 00:45 Total Protein 7.8 g/dL (6.4-8.2) 07/02/19 00:45 Albumin 3.9 g/dL (3.4-5.0) 07/02/19 00:45 Procalcitonin < 0.1 ng/mL 07/02/19 00:45 TSH 0.32 uIU/mL (0.36-3.74) L 07/02/19 00:45 Free T4 0.95 ng/dL (0.76-1.46) 07/02/19 00:45 Urine Color Yellow (Yellow) 07/02/19 02:03 Urine Clarity Clear (Clear) 07/02/19 02:03 Urine pH 6.0 (5-8) 07/02/19 02:03 Ur Specific [place] 1.025 (1.005-1.025) 07/02/19 02:03 Urine Protein Negative mg/dL (Negative) 07/02/19 02:03 Urine Ketones 40 mg/dL (Negative) H 07/02/19 02:03 Urine Blood Negative (Negative) 07/02/19 02:03 Urine Nitrite Negative (Negative) 07/02/19 02:03 Urine Bilirubin Negative (Negative) 07/02/19 02:03 Urine Urobilinogen 1.0 EU/dL (Up TO 0.2) H 07/02/19 02:03 Ur Leukocyte Esterase Negative (Negative) 07/02/19 02:03 Urine Glucose Negative mg/dL (Negative) 07/02/19 02:03 Salicylates < 2.8 mg/dL (2.8-20.0) 07/02/19 00:45 Urine Opiates Screen Negative (Negative) 07/02/19 02:03 Urine Methadone Screen Negative (Negative) 07/02/19 02:03 Acetaminophen < 2 ug/mL (10-30) 07/02/19 00:45 Ur Barbiturates Screen Negative (Negative) 07/02/19 02:03 Ur Tricyclics Screen Negative (Negative) 07/02/19 02:03 Ur Amphetamines Screen Negative (Negative) 07/02/19 02:03 U Benzodiazepines Scrn Negative (Negative) 07/02/19 02:03 Urine Cocaine Screen Negative (Negative) 07/02/19 02:03 Ur THC Screen Negative (Negative) 07/02/19 02:03 Ethyl Alcohol < 3.0 mg/dL (<3) 07/02/19 00:45 Patient ABO/Rh A Positive 07/02/19 01:34 Antibody Screen Negative 07/02/19 01:34 Crossmatch See Detail 07/02/19 01:34
[2019-07-02] MEDS: LORazepam 2 MG/ML VIAL 1 MG IVP (14:44)
[2019-07-02 14:51] LABS: Abs Immature Grans 0.03 k/cumm (0.0-0.09); Absolute Basophil Count 0.03 k/cumm (0.0-0.2); Absolute Eosinophil Count 0.09 k/cumm (0.0-0.7); Absolute Lymphocyte Count 3.29 k/cumm (1.2-3.4); Absolute Monocyte Count 1.49 k/cumm (0.11-0.7); Absolute Neutrophil Count 5.89 k/cumm (1.2-6.7); Basophils % 0.3; Eosinophils % 0.8; HCT 27.2 % (36.0-46.0); HGB 9.6 g/dL (12.0-15.5); Immature Grans % 0.3 %; Lymphocytes % 30.4; Mean Corp. HGB Concentration 35.3 g/dL (32.0-36.0); Mean Platelet Volume 8.2 fL (8.0-11.0); Monocytes % 13.8; Neutrophils % 54.4; Platelet Count 564 x1000/uL (130-400); RBC Distribution Width 18.4 % (11.7-14.6); White Blood Cell Count 10.82 k/cumm (4.4-10.8)
[2019-07-02] MEDS: Normal Saline Flush 10 ML SYR IVP (15:04)
[2019-07-02 15:05] LABS: Anisocytosis 2+; Diff Comment RBC Morph Reviewed; Howell-Jolly Bodies Present; Hypochromasia 2+
[2019-07-02 15:06] LABS: Poikilocytes 2+; Polychromasia Present; Target Cells 2+
--- NOTE | 2019-07-02 16:10 | DI.MRI_ITS ---
EXAM: MR BRAIN WO/W CLINICAL HISTORY: AMS, h/o brain mass. TECHNIQUE: Multiplanar multisequence MRI was performed. COMPARISON: No exams were available for comparison FINDINGS: MR examination of brain was performed according to the usual protocol with additional post contrast a xial and coronal T1 weighted imaging. There is no mass lesion or enhancing lesion of the brain. Not e is made of an area of high signal on T2 weighted and FLAIR images measuring roughly 7 millimeters i n greatest diameter of the subcortical white matter of the superior aspect of left frontal lobe near the midline. No associated enhancement. No evidence of diffusion restriction. Susceptibility weigh sage imaging shows no evidence of hemorrhage. No other signal abnormality identified in the brain. The orbital and temporal bone structures appear intact. The pituitary appears intact. There is norm al flow void in the [id number] vasculature. IMPRESSION: Solitary high signal focus in left frontal subcortical white matter as described above. Findings are nonspecific and could be associated with demyelinating process or inflammatory process. Clinical co rrelation requested and follow-up MRI recommended in 6 months. DATA REPOSITORY:
--- NOTE | 2019-07-02 16:30 | DI.VRAD_ITS ---
PROCEDURE INFORMATION: Exam: MR Head Without and With Contrast Exam date and time: 07/02/2019 4:09 PM Age: 34 years old Clinical indication: Altered mental status/memory loss; Confusion or disorientation; Patient HX: H/o brain mass, AMS TECHNIQUE: Imaging protocol: MR of the head without and with intravenous contrast. 3D rendering: MIP and/or 3D reconstructed images were created by the technologist. Contrast material: DOTAREM; Contrast volume: 10 ml; Contrast route: IV; COMPARISON: CT HEAD WO 07/01/2019 11:11 PM FINDINGS: Brain: Single small nonspecific nonenhancing focus of T2/FLAIR hyperintensity in the subcortical white matter of the medial superior left frontal lobe. No intracranial hemorrhage or extra-axial fluid collection. No evidence of mass effect or midline shift. No restricted diffusion to suggest acute infarct. No areas of abnormal enhancement. Ventricles: Ventricles, cisterns, and sulci are normal. Bones/joints: Unremarkable. Soft tissues: Unremarkable. Sinuses: Unremarkable. Mastoid air cells: No mastoid effusion. Orbits: Unremarkable. IMPRESSION: Single small nonenhancing focus of T2/FLAIR hyperintensity in the subcortical white matter of the medial superior left frontal lobe. Finding is nonspecific. Differential includes but is not limited to sequela of demyelinating disease, chronic small vessel ischemic change, vasculitis, or other chronic inflammatory white matter disease. Recommend neurology consultation. Dictated and Authenticated by: Kenji Painting MD. Ordering:VENESSA Walton MD
--- NOTE | 2019-07-02 17:20 | W.NEUROCONSU ---
Date of service: 07/02/19 Time of Service: 17:20 Assessment and Plan Assessment and plan (1) Acute alteration in mental status: Status: Acute Assessment and plan: Ms. Barajas is a 34 year-old, right-handed woman who was admitted with AMS and possible sickle cell crisis. Her neurological exam and neuroimaging have been unremarkable. I have never seen encephalopathy due to sickle cell without stroke, PRES, etc, i.e. abnormal brain imaging. Despite no known history of psychiatric disease, she clearly has a lot going on right now. I recommend psychiatric consultation and case management assistance. Please call with any questions or concerns. History of Present Illness History of Present Illness Chief Complaint: AMS Narrative: Handedness: right. HPI: Ms. Barajas is a 34 year-old woman with a PMH of sickle cell disease. She was brought to the ER yesterday evening by state police with AMS after she was found outside of her car along with highway without any more gas. She was found to be fairly anemic with concerns for sickle crises. When I walked into her room, she was having a FaceTime conversation with her boyfriend of 4 years named Kenji. He kept calling her stupid head and told her not to call him and that she needed to get her shit together. I tried asking him some questions but he refused to answer any of them. He told me to ask her the questions and also told me that she had many other guys in her life that could get me answers if I needed them. She neither denied this or confirmed this. Ms. Barajas was tearful through most of our interview. She answered some questions and at other times would either not answer or go back to a previous question/answer. From what I gather, she lives in [place], [place] (She initially told me she didn't know where she lived). She tells me she is on disability and does not work. She has 4 children age 5-13 years, whom she says lives with her but per PD report are in foster care. She is apparently being evicted from her current place of living. Initially, she told me that she was trying to get to Kenji's house in [place] but got lost. Later though, she said she was trying to get to Aunty's house in [place] as she is planning to relocate to [place] to be closer to Aunty. She has not had any reported focal neurological signs. She had a brain MRI today which I was able to view personally. There were no acute findings. She has a single T2 lesion in the high left frontal cortex. This is non-enhancing and non-specific. We were able to get some of her prior records from [place] which including an MRI from Jan 2019 which showed similar findings per the report. Laboratory work-up has been significant for Tbili 8.4, Ammonia <10, TSH 0.32 with normal FT4. Consults Requesting physician: Isabelle Pablo Review of Systems Unobtainable due to mental status [facility] Medical History (Updated 07/02/19 @ 08:51 by Tan Kovacs) Anemia, chronic disease (Acute) Herpes (Acute) Low-grade chronic hyperbilirubinemia (Acute) Pulmonary embolism (Chronic ~2013) associated w/ childbirth in [address] ([address] 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, [place], [place]) Sickle cell anemia with crisis (Acute) last admission for sickle crisis was 01/03/2019 in [facility], [place], [place] Surgical History (Updated 07/02/19 @ 02:52 by Darlene Ricci) History of cholecystectomy (Chronic) Social History (Updated 07/02/19 @ 08:56 by Tan Kovacs) Smoking/Tobacco Use Status: Never Alcohol Intake: current Alcohol Intake frequency: a few times a month Alcohol type: other Substance use type: does not use Adopted: No Household members: children Number of Children: 4 Do you feel safe at home: Yes Do you feel safe in your relationship?: Yes Additional Social history: above as answered by pt Visit Medication and Allergies Active Medications Generic Name Dose Route Start Last Admin Trade Name Freq PRN Reason Stop Dose Admin Acetaminophen 0 mg 07/02/19 02:28 07/02/19 10:35 Tylenol PO 650 mg Q4H PRN PRN Administration Al Hydrox/Mg Hydrox/Simethicone 30 ml 07/02/19 02:28 Mylanta Liquid PO Q2H PRN PRN Diazepam 2 mg 07/02/19 03:45 Valium PO ONCE PRN Dimethicone/Zinc Oxide 0 gm 07/02/19 02:23 Tejinder Protect Cream TP PRN PRN Docusate Sodium 100 mg 07/02/19 02:28 Colace PO TID PRN PRN Folic Acid 1 mg 07/02/19 08:30 07/02/19 08:15 Folate PO 1 mg DAILY MICKIE Administration Hydromorphone HCl 1 mg 07/02/19 09:08 Dilaudid Injection IVP Q4H PRN PRN Hydroxyurea 1,000 mg 07/02/19 08:30 07/02/19 10:04 Hydrea PO 1,000 mg DAILY MICKIE Administration Sodium Chloride 1,000 mls @ 125 mls/hr 07/02/19 10:30 07/02/19 11:38 Half Normal Saline IV 125 mls/hr INFUSION MICKIE Administration Ibuprofen 600 mg 07/02/19 02:32 07/02/19 08:26 Motrin PO 600 mg Q6H PRN PRN Administration Ketorolac Tromethamine 30 mg 07/02/19 09:07 Toradol Injection IVP 07/07/19 09:06 Q6H PRN PRN Magnesium Hydroxide 30 ml 07/02/19 02:28 Milk Of Magnesia PO DAILY PRN PRN Oxycodone HCl 10 mg 07/02/19 02:32 Roxicodone PO Q4H PRN PRN Pantoprazole Sodium 40 mg 07/02/19 07:30 07/02/19 08:15 Protonix PO 40 mg DAILY@0730 MICKIE Administration Polyethylene Glycol 17 gm 07/02/19 02:28 Miralax PO DAILY PRN PRN Constipation Sodium Chloride 10 ml 07/02/19 14:50 07/02/19 15:04 Saline Flush 10 Ml Syringe IVP 20 ml PRN PRN Administration Allergies No Known Allergies Allergy (Unverified 07/01/19 23:59) Exam Narrative Exam Narrative: Physical Exam: Gen: Patient of apparent stated age, crying at times - having conversations with [facility] Head and face: no facial or cranial abnormalities Neck: Supple, no meningismus, no occipital tenderness CV: + S1, S2, RRR, no murmur Resp: CTA B/L Abd: soft, nontender, nondistended Ext: No edema. No clubbing or cyanosis. No bony deformity. Neuro Exam: Language: fluency, naming, repetition, and comprehension intact; Mental Status: AAOxstate and time; did not know city or hospital name, current events and fund of knowledge limited Speech: no dysarthria Cranial nerves: Funduscopy: not performed CN II: visual blanchard intact CN III, IV, : extraocular movements intact, no nystagmus, pupils symmetric and reactive to light CN V: face sensation intact to LT and temp CN VII: no facial asymmetry noted CN VIII: hearing intact bilaterally CN IX, X: palate rises symmetrically CN XI: trapezius/SCM 5/5 bilaterally CN XII: protrudes tongue symmetrically Sensory: intact to LT, temp, vibration, and joint position in all extremities, Motor: bulk and tone intact. Fine motor movements intact bilaterally. No pronator drift. Strength 5/5 throughout including the deltoids, biceps, triceps, wrist extensors, hip flexors, knee flexors, knee extensors, ankle flexors, and ankle extensors. Reflexes: 2+ at the biceps, triceps, brachioradialis, patella, and achilles tendons bilaterally; toes down going bilaterally; Coordination: FTN and HTS intact bilaterally Gait: did not test Results Last Vital Signs Temp 37 C 07/02/19 16:21 Pulse 82 07/02/19 16:21 Resp 17 07/02/19 16:21 BP 123/82 07/02/19 16:21 Pulse Ox 99 07/02/19 16:21 Labs Result diagrams: 07/02/19 14:39 07/02/19 00:45 Labs: Laboratory Results - last 24 hr 07/02/19 07/02/19 07/02/19 00:45 00:45 00:45 WBC RBC Hgb Hct MCV MCH MCHC RDW Plt Count MPV Immature Gran % Neutrophils % Band Neutrophils % Lymphocytes % Monocytes % Eosinophils % Basophils % Absolute Neutrophils Absolute Lymphocytes Absolute Monocytes Absolute Eosinophils Absolute Basophils Nucleated RBCs Differential Comment RBC Morphology Polychromasia Hypochromasia Poikilocytosis Anisocytosis Target Cells [place] Bodies Retic Count PT INR APTT D-Dimer VBG pH VBG pCO2 VBG pO2 VBG HCO3 VBG Total CO2 VBG O2 Saturation VBG Base Excess Sodium 141 Potassium 4.0 Chloride 108 H Carbon Dioxide 24.3 Anion Gap 8.7 BUN 7 Creatinine 0.43 L Estimated GFR/1.73 m2 >= 60.00 Glucose 87 Lactate 0.8 Calcium 8.6 Ferritin Total Bilirubin 8.6 H Conjugated Bilirubin AST 30 ALT 28 Alkaline Phosphatase 63 Ammonia < 10 L Lactate Dehydrogenase Troponin I < 0.05 C-Reactive Protein Total Protein 7.8 Albumin 3.9 Procalcitonin TSH 0.32 L Free T4 0.95 Urine Color Urine Clarity Urine pH Ur Specific [place] Urine Protein Urine Ketones Urine Blood Urine Nitrite Urine Bilirubin Urine Urobilinogen Ur Leukocyte Esterase Urine Glucose Salicylates Urine Opiates Screen Urine Methadone Screen Acetaminophen Ur Barbiturates Screen Ur Tricyclics Screen Ur Amphetamines Screen U Benzodiazepines Scrn Urine Cocaine Screen Ur THC Screen Ethyl Alcohol < 3.0 Patient ABO/Rh Antibody Screen Crossmatch 07/02/19 07/02/19 07/02/19 00:45 00:45 00:45 WBC 13.76 H RBC 2.63 L Hgb 7.8 L Hct 22.5 L MCV 85.6 MCH 29.7 MCHC 34.7 RDW 20.1 H Plt Count 559 H MPV 8.5 Immature Gran % See Differential Neutrophils % 46.0 Band Neutrophils % 1.0 Lymphocytes % 37.0 Monocytes % 13.0 Eosinophils % 0.0 Basophils % 2.0 Absolute Neutrophils 6.47 Absolute Lymphocytes 5.09 H Absolute Monocytes 1.79 H Absolute Eosinophils 0.00 Absolute Basophils 0.28 H Nucleated RBCs 3 Differential Comment Manual differential RBC Morphology See below Polychromasia Hypochromasia 2+ Poikilocytosis 1+ Anisocytosis 1+ Target Cells [place] Bodies Retic Count 10.9 H PT 11.2 H INR 1.1 APTT 21.4 D-Dimer 741 H VBG pH 7.40 VBG pCO2 39 VBG pO2 54 H VBG HCO3 24 VBG Total CO2 23 VBG O2 Saturation 83 H VBG Base Excess -0.6 Sodium Potassium Chloride Carbon Dioxide Anion Gap BUN Creatinine Estimated GFR/1.73 m2 Glucose Lactate Calcium Ferritin Total Bilirubin Conjugated Bilirubin AST ALT Alkaline Phosphatase Ammonia Lactate Dehydrogenase Troponin I C-Reactive Protein Total Protein Albumin Procalcitonin TSH Free T4 Urine Color Urine Clarity Urine pH Ur Specific [place] Urine Protein Urine Ketones Urine Blood Urine Nitrite Urine Bilirubin Urine Urobilinogen Ur Leukocyte Esterase Urine Glucose Salicylates Urine Opiates Screen Urine Methadone Screen Acetaminophen Ur Barbiturates Screen Ur Tricyclics Screen Ur Amphetamines Screen U Benzodiazepines Scrn Urine Cocaine Screen Ur THC Screen Ethyl Alcohol Patient ABO/Rh Antibody Screen Crossmatch 07/02/19 07/02/19 07/02/19 00:45 00:45 00:45 WBC RBC Hgb Hct MCV MCH MCHC RDW Plt Count MPV Immature Gran % Neutrophils % Band Neutrophils % Lymphocytes % Monocytes % Eosinophils % Basophils % Absolute Neutrophils Absolute Lymphocytes Absolute Monocytes Absolute Eosinophils Absolute Basophils Nucleated RBCs Differential Comment RBC Morphology Polychromasia Hypochromasia Poikilocytosis Anisocytosis Target Cells [place] Bodies Retic Count PT INR APTT D-Dimer VBG pH VBG pCO2 VBG pO2 VBG HCO3 VBG Total CO2 VBG O2 Saturation VBG Base Excess Sodium Potassium Chloride Carbon Dioxide Anion Gap BUN Creatinine Estimated GFR/1.73 m2 Glucose Lactate Calcium Ferritin 164 Total Bilirubin Conjugated Bilirubin 0.44 H AST ALT Alkaline Phosphatase Ammonia Lactate Dehydrogenase 381 H Troponin I C-Reactive Protein 0.32 H Total Protein Albumin Procalcitonin < 0.1 TSH Free T4 Urine Color Urine Clarity Urine pH Ur Specific [place] Urine Protein Urine Ketones Urine Blood Urine Nitrite Urine Bilirubin Urine Urobilinogen Ur Leukocyte Esterase Urine Glucose Salicylates Urine Opiates Screen Urine Methadone Screen Acetaminophen Ur Barbiturates Screen Ur Tricyclics Screen Ur Amphetamines Screen U Benzodiazepines Scrn Urine Cocaine Screen Ur THC Screen Ethyl Alcohol Patient ABO/Rh Antibody Screen Crossmatch 07/02/19 07/02/19 07/02/19 00:45 01:34 02:03 WBC RBC Hgb Hct MCV MCH MCHC RDW Plt Count MPV Immature Gran % Neutrophils % Band Neutrophils % Lymphocytes % Monocytes % Eosinophils % Basophils % Absolute Neutrophils Absolute Lymphocytes Absolute Monocytes Absolute Eosinophils Absolute Basophils Nucleated RBCs Differential Comment RBC Morphology Polychromasia Hypochromasia Poikilocytosis Anisocytosis Target Cells [place] Bodies Retic Count PT INR APTT D-Dimer VBG pH VBG pCO2 VBG pO2 VBG HCO3 VBG Total CO2 VBG O2 Saturation VBG Base Excess Sodium Potassium Chloride Carbon Dioxide Anion Gap BUN Creatinine Estimated GFR/1.73 m2 Glucose Lactate Calcium Ferritin Total Bilirubin Conjugated Bilirubin AST ALT Alkaline Phosphatase Ammonia Lactate Dehydrogenase Troponin I C-Reactive Protein Total Protein Albumin Procalcitonin TSH Free T4 Urine Color Yellow Urine Clarity Clear Urine pH 6.0 Ur Specific [place] 1.025 Urine Protein Negative Urine Ketones 40 H Urine Blood Negative Urine Nitrite Negative Urine Bilirubin Negative Urine Urobilinogen 1.0 H Ur Leukocyte Esterase Negative Urine Glucose Negative Salicylates < 2.8 Urine Opiates Screen Urine Methadone Screen Acetaminophen < 2 Ur Barbiturates Screen Ur Tricyclics Screen Ur Amphetamines Screen U Benzodiazepines Scrn Urine Cocaine Screen Ur THC Screen Ethyl Alcohol Patient ABO/Rh A Positive Antibody Screen Negative Crossmatch See Detail 07/02/19 07/02/19 02:03 14:39 WBC 10.82 H RBC 3.20 L Hgb 9.6 L Hct 27.2 L D MCV 85.0 MCH 30.0 MCHC 35.3 RDW 18.4 H Plt Count 564 H MPV 8.2 Immature Gran % 0.3 Neutrophils % 54.4 Band Neutrophils % Lymphocytes % 30.4 Monocytes % 13.8 Eosinophils % 0.8 Basophils % 0.3 Absolute Neutrophils 5.89 Absolute Lymphocytes 3.29 Absolute Monocytes 1.49 H Absolute Eosinophils 0.09 Absolute Basophils 0.03 Nucleated RBCs Differential Comment Rbc morph reviewed RBC Morphology See below Polychromasia Present Hypochromasia 2+ Poikilocytosis 2+ Anisocytosis 2+ Target Cells 2+ [place] Bodies Present Retic Count PT INR APTT D-Dimer VBG pH VBG pCO2 VBG pO2 VBG HCO3 VBG Total CO2 VBG O2 Saturation VBG Base Excess Sodium Potassium Chloride Carbon Dioxide Anion Gap BUN Creatinine Estimated GFR/1.73 m2 Glucose Lactate Calcium Ferritin Total Bilirubin Conjugated Bilirubin AST ALT Alkaline Phosphatase Ammonia Lactate Dehydrogenase Troponin I C-Reactive Protein Total Protein Albumin Procalcitonin TSH Free T4 Urine Color Urine Clarity Urine pH Ur Specific [place] Urine Protein Urine Ketones Urine Blood Urine Nitrite Urine Bilirubin Urine Urobilinogen Ur Leukocyte Esterase Urine Glucose Salicylates Urine Opiates Screen Negative Urine Methadone Screen Negative Acetaminophen Ur Barbiturates Screen Negative Ur Tricyclics Screen Negative Ur Amphetamines Screen Negative U Benzodiazepines Scrn Negative Urine Cocaine Screen Negative Ur THC Screen Negative Ethyl Alcohol Patient ABO/Rh Antibody Screen Crossmatch
[2019-07-02 21:11] LABS: COVID-19 RT-PCR UVMMC Result Negative (Negative)
[2019-07-02] MEDS: oxyCODONE 10 MG TAB PO (23:40)
--- NOTE | 2019-07-02 23:59 | NUR.NOTE ---
Nursing Note: Pt covid 19 test result relayed by full charge bookkeeper as negative. Stayed on the bedside chair until bedtime. Had phone calls many times. Pt is AO x 3. Medicated for pain rated 8, with oxycodone and with good relief. Requested to have bandaid applied on left lower mccormick for dry tiny scab, insisted to be covered to avoid picking it. Needs attended.
[2019-07-03] VITALS (8 sets, daily range): BP systolic 101–137; BP diastolic 66–80; PULSE 72–89; RESP 17–19; TEMP 36.2–37.1; O2SAT 96–100
--- NOTE | 2019-07-03 02:03 | NUR.NOTE ---
Nursing Note: This PUBLISHING DIRECTOR noticed that patient talks normally when she is on the phone but when I go in she seems to switch to a baby like voice,not sure what that is about
[2019-07-03] MEDS: Ketorolac 30 MG/ML VIAL IVP (02:38)
[2019-07-03] MEDS: SODIUM CHLORIDE 0.45% 1,000 ML 125 ML IV (04:35)
[2019-07-03 07:06] LABS: Abs Immature Grans 0.01 k/cumm (0.0-0.09); HCT 27.4 % (36.0-46.0); HGB 9.6 g/dL (12.0-15.5); Mean Corpuscular Hemoglobin 29.4 pg (27.0-33.0); Mean Platelet Volume 8.3 fL (8.0-11.0); RBC 3.26 m/cumm (4.00-5.20); RBC Distribution Width 18.2 % (11.7-14.6); White Blood Cell Count 11.09 k/cumm (4.4-10.8)
[2019-07-03 07:18] LABS: BUN 4 mg/dL (7-18); C-Reactive Protein 0.31 mg/dL (0.0-0.3); CREATININE 0.58 mg/dL (0.55-1.02); Calcium 8.1 mg/dL (8.5-10.1); Chloride 107 mmol/L (98-107); Glucose 122 mg/dL (74-106); Magnesium 1.7 mg/dL (1.8-2.4); Sodium 139 mmol/L (136-145)
[2019-07-03] MEDS: Hydroxyurea 500 MG CAP 1000 MG PO (07:50)
[2019-07-03] MEDS: Folic Acid 1 MG TAB PO (07:50)
[2019-07-03] MEDS: Pantoprazole 40 MG TABCR PO (07:50)
[2019-07-03 08:00] LABS: Absolute Eosinophil Count 0.22 k/cumm (0.0-0.7); Absolute Lymphocyte Count 3.99 k/cumm (1.2-3.4); Absolute Monocyte Count 1.11 k/cumm (0.11-0.7); Absolute Neutrophil Count 5.66 k/cumm (1.2-6.7); Nucleated RBC 1 /100WBC; Platelet Count 526 x1000/uL (130-400)
[2019-07-03 08:01] LABS: Anisocytosis 2+; Diff Comment Manual Differential; Howell-Jolly Bodies Present
[2019-07-03 08:02] LABS: Hypochromasia 1+; Poikilocytes 2+; Polychromasia Present; Target Cells 2+
[2019-07-03] MEDS: MAGNESIUM SULFATE 2 GM/50 ML BAG IVPB (08:49)
[2019-07-03] MEDS: Potassium Chloride 20 MEQ TABCR 40 MEQ PO (08:49)
[2019-07-03] MEDS: POTASSIUM CHLORIDE/0.45% NACL 1,000 ML 100 MEQ IV (11:16)
--- NOTE | 2019-07-03 11:41 | W.NUTRFU ---
Date of service: 07/03/19 Time of Service: 11:42 Nutritional Follow up NOTE: 34 yea rold female admitted with AMS admitted with possible sickle cell crisis. BMI wnl. Following regular meal plan with adequate intake. Time Spent in Nutritional Counseling and Treatment: 0
--- NOTE | 2019-07-03 12:38 | W.PM.PROGNOT ---
Date of Service Date of service: 07/03/19 Time of Service: 12:38 Assessment and Plan Assessment and plan (1) Sickle cell anemia with crisis: Status: Resolved Assessment and plan: The patient's symptoms have completely resolved. Will d/c IV toradol, IV dilaudid, IVF. (2) Acute alteration in mental status: Status: Acute Assessment and plan: Evaluated by neurology and felt to be psychiatric in origin. Awaiting results of psychiatric evaluation to help determine disposition. (3) Hypokalemia: Status: Acute Assessment and plan: Replete and recheck in am (4) Hypomagnesemia: Status: Acute Assessment and plan: Replete and recheck in am (5) Discharge planning issues: Status: Acute Assessment and plan: Full code Disposition pending psychiatric evaluation Subjective Subjective Interval history since last seen: Ms Barajas states she is feeling better today. Per nursing, the patient was agitated last night talking very loudly on the phone, crying, anxious up until about 2 am. She is much calmer today, per nursing. She refers to what happened the other day as crazy. She denies a headache, still reports a little light sensitivity, but it's not bad. Denies dizziness, neck pain, chest pain/tightness, bone pain, denies n/v. She is expected to undergo a psychiatric evaluation this afternoon. Her aunt can pick her up tomorrow and work on getting her back to [place]. Exam Narrative Exam Narrative: General: pleasant, cooperative female, A&Ox3, recognizes me, no focal deficits HEENT: EOMI, MMM Heart: RRR, no m/r/g Lungs: CTAB Abdomen: soft, nontender, nondistended Extremities: no e/c/c BLE's Objective Objective Clinical Data: Abnormal lab results 07/02/19 07/02/19 07/03/19 Range/Units 01:34 14:39 06:50 WBC 10.82 H (4.4-10.8) k/cumm RBC 3.20 L (4.00-5.20) m/cumm Hgb 9.6 L (12.0-15.5) g/dL Hct 27.2 L D (36.0-46.0) % RDW 18.4 H (11.7-14.6) % Plt Count 564 H (130-400) x1000/uL Absolute Lymphocytes (1.2-3.4) k/cumm Absolute Monocytes 1.49 H (0.11-0.7) k/cumm Potassium 3.0 L D (3.5-5.1) mmol/L BUN 4 L (7-18) mg/dL Glucose 122 H (74-106) mg/dL Calcium 8.1 L (8.5-10.1) mg/dL Magnesium 1.7 L (1.8-2.4) mg/dL C-Reactive Protein 0.31 H (0.0-0.3) mg/dL Crossmatch See Detail 07/03/19 Range/Units 06:50 WBC 11.09 H (4.4-10.8) k/cumm RBC 3.26 L (4.00-5.20) m/cumm Hgb 9.6 L (12.0-15.5) g/dL Hct 27.4 L (36.0-46.0) % RDW 18.2 H (11.7-14.6) % Plt Count 526 H (130-400) x1000/uL Absolute Lymphocytes 3.99 H (1.2-3.4) k/cumm Absolute Monocytes 1.11 H (0.11-0.7) k/cumm Potassium (3.5-5.1) mmol/L BUN (7-18) mg/dL Glucose (74-106) mg/dL Calcium (8.5-10.1) mg/dL Magnesium (1.8-2.4) mg/dL C-Reactive Protein (0.0-0.3) mg/dL Crossmatch Vital Signs Temperature 36.7 C 07/03/19 11:10 Temperature Source Tympanic 07/03/19 11:10 Pulse 73 07/03/19 11:10 Pulse Rhythm Regular 07/03/19 09:03 Pulse 95 H 07/02/19 03:01 Respiratory Rate 18 07/03/19 11:10 Respiratory Effort Non-Labored 07/03/19 09:03 Respiratory Depth Normal 07/03/19 09:03 Respiratory Pattern Normal 07/03/19 09:03 Blood Pressure 113/76 07/03/19 11:10 Blood Pressure Mean 76 07/02/19 03:00 Blood Pressure Position Supine 07/01/19 22:55 Pulse Oximetry 96 07/03/19 11:10 Oxygen Delivery Method Room Air 07/03/19 11:10 Oxygen Flow Rate 0 07/03/19 11:10 Pain Level 0 07/03/19 11:10 Comment 07/02/19 11:29 Intake & Output 07/02/19 07/03/19 07/03/19 23:59 11:59 23:59 Intake Total 2830 / 4600 1356.25 / 1356.25 Output Total 1900 / 2500 2500 / 2500 Balance 930 / 2100 -1143.75 / -1143.75 Weight 55 kg Intake: IV 2000 / 3000 876.25 / 876.25 Oral 480 / 900 480 / 480 Blood Product 350 / 700 Rbc Leuko Reduced Unit 350 / 350 [id number] Output: Urine 1900 / 2500 2500 / 2500 Other: Urine Color Yellow Yellow Urine Appearance Clear Clear Urine Odor None Comment mixed with stool pt denies any urinary issues Voiding Methods Toilet Toilet Laboratory Results WBC 11.09 k/cumm (4.4-10.8) H 07/03/19 06:50 RBC 3.26 m/cumm (4.00-5.20) L 07/03/19 06:50 Hgb 9.6 g/dL (12.0-15.5) L 07/03/19 06:50 Hct 27.4 % (36.0-46.0) L 07/03/19 06:50 MCV 84.0 fL (80-95) 07/03/19 06:50 MCH 29.4 pg (27.0-33.0) 07/03/19 06:50 MCHC 35.0 g/dL (32.0-36.0) 07/03/19 06:50 RDW 18.2 % (11.7-14.6) H 07/03/19 06:50 Plt Count 526 x1000/uL (130-400) H 07/03/19 06:50 MPV 8.3 fL (8.0-11.0) 07/03/19 06:50 Immature Gran % See Differential 07/03/19 06:50 Neutrophils % 51.0 07/03/19 06:50 Band Neutrophils % 1.0 % 07/02/19 00:45 Lymphocytes % 36.0 07/03/19 06:50 Monocytes % 10.0 07/03/19 06:50 Eosinophils % 2.0 07/03/19 06:50 Basophils % 0.0 07/03/19 06:50 Myelocytes % 1.0 % 07/03/19 06:50 Absolute Neutrophils 5.66 k/cumm (1.2-6.7) 07/03/19 06:50 Absolute Lymphocytes 3.99 k/cumm (1.2-3.4) H 07/03/19 06:50 Absolute Monocytes 1.11 k/cumm (0.11-0.7) H 07/03/19 06:50 Absolute Eosinophils 0.22 k/cumm (0.0-0.7) 07/03/19 06:50 Absolute Basophils 0.00 k/cumm (0.0-0.2) 07/03/19 06:50 Nucleated RBCs 1 /100WBC 07/03/19 06:50 Differential Comment Manual differential 07/03/19 06:50 RBC Morphology See below 07/03/19 06:50 Polychromasia Present 07/03/19 06:50 Hypochromasia 1+ 07/03/19 06:50 Poikilocytosis 2+ 07/03/19 06:50 Anisocytosis 2+ 07/03/19 06:50 Target Cells 2+ 07/03/19 06:50 [place] Bodies Present 07/03/19 06:50 Retic Count 10.9 % (0.5-2.4) H 07/02/19 00:45 PT 11.2 sec (9.3-11.0) H 07/02/19 00:45 INR 1.1 (0.9-1.1) 07/02/19 00:45 APTT 21.4 sec (21.0-31.4) 07/02/19 00:45 D-Dimer 741 ng/mlFEU (<500) H 07/02/19 00:45 VBG pH 7.40 (7.35-7.45) 07/02/19 00:45 VBG pCO2 39 mm/Hg (34-47) 07/02/19 00:45 VBG pO2 54 mm/Hg (28-44) H 07/02/19 00:45 VBG HCO3 24 mmol/L (22-28) 07/02/19 00:45 VBG Total CO2 23 mmol/L (22-29) 07/02/19 00:45 VBG O2 Saturation 83 % (70-80) H 07/02/19 00:45 VBG Base Excess -0.6 mmol/L (-3-3) 07/02/19 00:45 Sodium 139 mmol/L (136-145) 07/03/19 06:50 Potassium 3.0 mmol/L (3.5-5.1) L D 07/03/19 06:50 Chloride 107 mmol/L (98-107) 07/03/19 06:50 Carbon Dioxide 24.0 mmol/L (21.0-32.0) 07/03/19 06:50 Anion Gap 8.0 mmol/L (3-11) 07/03/19 06:50 BUN 4 mg/dL (7-18) L 07/03/19 06:50 Creatinine 0.58 mg/dL (0.55-1.02) 07/03/19 06:50 Estimated GFR/1.73 m2 >= 60.00 (mL/min/1.73m2) 07/03/19 06:50 Glucose 122 mg/dL (74-106) H 07/03/19 06:50 Lactate 0.8 mmol/L (0.6-1.4) 07/02/19 00:45 Calcium 8.1 mg/dL (8.5-10.1) L 07/03/19 06:50 Magnesium 1.7 mg/dL (1.8-2.4) L 07/03/19 06:50 Ferritin 164 ng/mL (8-252) 07/02/19 00:45 Total Bilirubin 8.6 mg/dL (0.2-1.0) H 07/02/19 00:45 Conjugated Bilirubin 0.44 mg/dL (0.00-0.20) H 07/02/19 00:45 AST 30 U/L (15-37) 07/02/19 00:45 ALT 28 U/L (14-59) 07/02/19 00:45 Alkaline Phosphatase 63 U/L (46-116) 07/02/19 00:45 Ammonia < 10 umol/L (11-32) L 07/02/19 00:45 Lactate Dehydrogenase 381 U/L (81-234) H 07/02/19 00:45 Troponin I < 0.05 ng/Ml (<0.06) 07/02/19 00:45 C-Reactive Protein 0.31 mg/dL (0.0-0.3) H 07/03/19 06:50 Total Protein 7.8 g/dL (6.4-8.2) 07/02/19 00:45 Albumin 3.9 g/dL (3.4-5.0) 07/02/19 00:45 Procalcitonin < 0.1 ng/mL 07/02/19 00:45 TSH 0.32 uIU/mL (0.36-3.74) L 07/02/19 00:45 Free T4 0.95 ng/dL (0.76-1.46) 07/02/19 00:45 Urine Color Yellow (Yellow) 07/02/19 02:03 Urine Clarity Clear (Clear) 07/02/19 02:03 Urine pH 6.0 (5-8) 07/02/19 02:03 Ur Specific [place] 1.025 (1.005-1.025) 07/02/19 02:03 Urine Protein Negative mg/dL (Negative) 07/02/19 02:03 Urine Ketones 40 mg/dL (Negative) H 07/02/19 02:03 Urine Blood Negative (Negative) 07/02/19 02:03 Urine Nitrite Negative (Negative) 07/02/19 02:03 Urine Bilirubin Negative (Negative) 07/02/19 02:03 Urine Urobilinogen 1.0 EU/dL (Up TO 0.2) H 07/02/19 02:03 Ur Leukocyte Esterase Negative (Negative) 07/02/19 02:03 Urine Glucose Negative mg/dL (Negative) 07/02/19 02:03 Salicylates < 2.8 mg/dL (2.8-20.0) 07/02/19 00:45 Urine Opiates Screen Negative (Negative) 07/02/19 02:03 Urine Methadone Screen Negative (Negative) 07/02/19 02:03 Acetaminophen < 2 ug/mL (10-30) 07/02/19 00:45 Ur Barbiturates Screen Negative (Negative) 07/02/19 02:03 Ur Tricyclics Screen Negative (Negative) 07/02/19 02:03 Ur Amphetamines Screen Negative (Negative) 07/02/19 02:03 U Benzodiazepines Scrn Negative (Negative) 07/02/19 02:03 Urine Cocaine Screen Negative (Negative) 07/02/19 02:03 Ur THC Screen Negative (Negative) 07/02/19 02:03 Ethyl Alcohol < 3.0 mg/dL (<3) 07/02/19 00:45 COVID-19 PCR Negative (Negative) 07/01/19 22:27 Nasopharyn COVID-19 PCR Not Applicable 07/01/19 22:27 Path Cons Comment 07/02/19 00:45 Ref Test Perform Site [facility] hospital lab 07/01/19 22:27 Patient ABO/Rh A Positive 07/02/19 01:34 Antibody Screen Negative 07/02/19 01:34 Crossmatch See Detail 07/02/19 01:34 MRI brain w/w/o contrast: Solitary high signal focus in left frontal subcortical white matter as described above. Findings are nonspecific and could be associated with demyelinating process or inflammatory process. Clinical correlation requested and follow-up MRI recommended in 6 months.
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
--- NOTE | 2019-07-03 17:14 | PDOC.CMPRO ---
Care Management Progress Note S/O: Lilliana was much more animated today. She was pleasant and cheerful in interaction. CM facilitated phone contact between Lilliana, and her DCF workers, Jersey and Ioana. Ioana reported she will be stepping out as she works primarily as a crisis hospice social worker. CM reviewed discharge plan with Jersey, who stated he would support Lilliana in service connection once she returns to [place]. F/U appt with her PCP will be scheduled at [facility]. CM will fax clinicals to PCP and DCF, as requested. Lilliana had a productive psychiatric consult with Dr. Cummins today; please refer to documentation for further information. CM will support Lilliana in completing notarized wishes letter, per her request. CM provided additional clothes and shoes. A: 34 year old female admitted to [facility] 07/02/19 for Encephalopathy, sickle cell crisis P: Shaylee will discharge tomorrow morning around 1100. Her aunt, Jennifer from [place], [place] will be arriving to pick her up, and will retrieve her car from [place]. The plan is for Jennifer and her to bring Lilliana back to their home in [place] and drive her down to [place], [place] on Sunday. Shaylee has a [facility] court hearing on Sunday regarding the custody of her children. She will follow up with her PCP, seek service connection in [place] and work with Jersey of [facility] on further planning.
[2019-07-04 07:35] VITALS: BP 111/71; PULSE 82; RESP 18; TEMP 37.1; O2SAT 98
[2019-07-04] MEDS: Pantoprazole 40 MG TABCR PO (07:35)
[2019-07-04 07:46] LABS: BUN 8 mg/dL (7-18); CREATININE 0.47 mg/dL (0.55-1.02); Calcium 8.5 mg/dL (8.5-10.1); Chloride 103 mmol/L (98-107); Glucose 101 mg/dL (74-106); Potassium 3.7 mmol/L (3.5-5.1); Sodium 135 mmol/L (136-145)
[2019-07-04] MEDS: Hydroxyurea 500 MG CAP 1000 MG PO (08:31)
[2019-07-04] MEDS: Folic Acid 1 MG TAB PO (08:31)
--- NOTE | 2019-07-04 09:40 | DSE_ITS ---
Date of service: 07/04/19 Time of Service: 09:40 DS: Diagnosis Discharge Diagnosis (1) Sickle cell anemia with crisis: Start date: 07/04/19 Start time: 09:40 Status: Resolved Asessment and Plan: The patient's symptoms have completely resolved. Will d/c IV toradol, IV dilaudid, IVF. She did require 2 units RBC on admission from ED. Not requiring oxygen. Pain is a 0 at this time. 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 A lorazepam challenge merely caused her to sleep rather than increase motor function when she was observed to be a bit motorically inhibited. Her past mental health history could not be confirmed through collateral information at this time, and a more long-standing psychotic disorder, a dissociative disorder, or mood disorder, along with learning disability or inte llectual disability can not be ruled out as contributing to her presentation. She appears to have limited cognitive capacity to manage complex demands of raising four children alone at home during Stay Home orders of this pandemic. On top of this she seems likely to have a chronic PTSD which makes coping alone very challenging and now she is grieving the break up with her most recent boyfriend. But within the context of her cognitive abilities, she does not now appear to be having any psychotic features, she is reality based, she is concerned about her safety getting back home and being at home alone, and is willing to have help. (3) Acute alteration in mental status: Start date: 07/04/19 Start time: 09:47 Status: Resolved Asessment and Plan: Acute altered mental status upon arrival to ED. Eval uation done by neurology and psych. This appeared to be brought on by marked stressors, see above. (4) Hypokalemia: Start date: 07/04/19 Start time: 09:48 Status: Resolved Asessment and Plan: Required repletion of electrolytes while in patient. Resolved at this time, normal potassium level. 3.7 (5) Hypomagnesemia: Start date: 07/04/19 Start time: 09:49 Status: Resolved Asessment and Plan: Required repletion of magnesium upon admission. Resolved mag level 2.0 Above case discussed with Dr. Pablo who is in agreement. Discharge Plan Disposition Patient Disposition: HOME Condition: Stable Discharge Details Chief Complaint: AMS/LOC Clinical Impression: Acute alteration in mental status, Anemia, Sickle cell anemia with crisis Reason For Visit: ENCEPHALOPATHY, SICKLE CELL CRISIS Admit Date/Time: 07/03/19 12:42 Admit Provider: Tan Kovacs Attending Provider: Tan Kovacs Primary Care Provider: [facility] ED Provider: Kranthi Botello Hospital Course Hospital Course: 34 y.o female with PMH SS anemia presented to [facility] ED after being found on side of road by [facility]. She drove from [place], [place], but unaware how or why she was here. She was brought to the ED for acute confusion. Work up in the ED included CT of the head without neurological findings. Labs revealed anemia at 7.8 and elevated LDH at 381 retic count was 10.9 adn direct bilirubin 0.4. With the thought of SSC going on 2 units were ordered in the ED and she was admitted to hospitalist service for further management. Neurology consulted, MRI obtained with no acute findings, neuroimaging and exam unremarkable and further recommend a psychiatric consult. Medical workup has been negative for infectious or metabolic etiology for AMS. Dr. Cummins evaluated patient stating :History and clinical exam are consistent with Brief Psychotic Disorder with marked stressors but without catatonia. A lorazepam challenge merely caused her to sleep rather than increase motor function when she was observed to be a bit motorically inhibited. Her past mental health history could not be confirmed through collateral information at this time, and a more long-standing psychotic disorder, a dissociative disorder, or mood disorder, along with learning disability or intellectual disability can not be ruled out as contributing to her presentation. She appears to have limited cognitive capacity to manage complex demands of raising four children alone at home during Stay Home orders of this pandemic. On top of this she seems likely to have a chronic PTSD which makes coping alone very challenging and now she is grieving the break up with her most recent boyfriend. But within the context of her cognitive abilities, she does not now appear to be having any psychotic features, she is reality based, she is concerned about her safety getting back home and being at home alone, and is willing to have help. Her pain improved with 2 units PRB, dilaudid and toradol overnight. Today she is feeling better. She is being discharged to family living in [place] who have agreed to sit with her over the weekend and get her back to [place], [place] on Sunday. For this reason she is being discharged. She is in a good mood during evaluation. Enthusiastic about discharge and just asked for pills in case pain comes back. She does not have any here. I agree she can have some pain medications for sickle cell we discussed keeping hydrated and stress relief techniques. She denies CP, SOB, N/V/D. Home Meds and New Rx's Prescriptions: New oxycodone 10 mg Tablet 10 mg PO Q4H PRN PRNQty: 8 RF: 0 Continued folic acid 1 mg Tablet 1 mg PO DAILY RF: 0 ibuprofen 600 mg Tablet 600 mg PO Q6H PRNRF: 0 oxycodone 10 mg Tablet 10 mg PO Q4H PRNRF: 0 B12 5,000-100 mcg Lozenge SUBLINGUAL RF: 0 hydroxyurea (sickle cell) 1,000 mg Tablet 1,000 mg PO DAILY RF: 0 Discharge Instructions Instructions: Stress (DC), Sickle Cell Crisis (DC), Sickle Cell Disease (DC) Additional Instructions: Follow up with Hemeatologist as needed STAY HYDRATED Take pain tab for severe sickle cell pain Stand Alone Forms: Nursing Discharge Form Activity:: Activity as Tolerated Equipment/Supplies:: No Equipment Needed Diet:: As Tolerated Discharge Orders Discharge Orders: Discharge Order (Routine); Ordered 07/04/19 Ordered By: Komal Hillman DS: Summary Status at Discharge Functional status at discharge: independent ambulation Overall status at discharge: patient is back to baseline Mental Status: mental status grossly normal Speech and Movement: speech and movement normal Mood: congruent mood Affect: normal affect Exam Narrative Exam Narrative: General: pleasant, cooperative female, A&Ox3, no focal deficits HEENT: EOMI, MMM Heart: RRR, no m/r/g Lungs: CTAB Abdomen: soft, nontender, nondistended Extremities: no e/c/c BLE's Psych Mental Status: mental status grossly normal Speech and Movement: speech and movement normal Mood: congruent mood Affect: normal affect DS: Data Vitals/I&O Vitals and I&O: Vital Signs Temperature 37.1 C 07/04/19 07:35 Temperature Source Temporal Artery Scan 07/04/19 07:35 Pulse 82 07/04/19 07:35 Pulse Rhythm Regular 07/04/19 07:20 Pulse 95 H 07/02/19 03:01 Respiratory Rate 18 07/04/19 07:35 Respiratory Effort 07/04/19 07:20 Respiratory Depth Normal 07/04/19 07:20 Respiratory Pattern Normal 07/04/19 07:20 Blood Pressure 111/71 07/04/19 07:35 Blood Pressure Mean 76 07/02/19 03:00 Blood Pressure Position Supine 07/01/19 22:55 Pulse Oximetry 98 07/04/19 07:35 Oxygen Delivery Method Room Air 07/04/19 07:35 Oxygen Flow Rate 0 07/04/19 07:35 Pain Level 0 07/04/19 07:35 Comment 07/02/19 11:29 Intake & Output 07/03/19 07/03/19 07/04/19 11:59 23:59 11:59 Intake Total 1406.25 / 3646.25 2240 / 3646.25 240 / 240 Output Total 2500 / 2500 Balance -1093.75 / 1146.25 2240 / 1146.25 240 / 240 Weight 55 kg 53 kg Intake: IV 926.25 / 2926.25 2000 / 2926.25 Oral 480 / 720 240 / 720 240 / 240 Output: Urine 2500 / 2500 Other: Urine Color Yellow Urine Appearance Clear Clear Clear Urine Odor None Comment pt denies any urinary issues Voided independently in to the toilet X3. As per patient. Voiding Methods Toilet Data Completed and Pending Completed studies during hospitalization [Text1]: Exam(s) a CT:CT head wo EXAM: CT HEAD WO CLINICAL HISTORY: altered, confused. TECHNIQUE: Imaging Protocol: Axial computed tomography images with coronal and sagittal reformatted images were created and reviewed COMPARISON: No exams were available for comparison FINDINGS: The ventricular system is normal in appearance. No evidence of acute intracranial hemorrhage, mass effect, or midline shift. The orbital structures are unremarkable. The temporal bone structures appear intact. Calvarium: Normal. Visualized Paranasal sinuses/Mastoids: Clear. IMPRESSION: Normal cranial CT. RADIATION DOSE DELIVERED: Total DLP DATA REPOSITORY: All CT scans at this facility are submitted to the National Radiology Data Registry (NRDR) Dose Index Registry (DIR) with the [employer] (ACR). RADIATION OPTIMIZATION: All CT scans at this facility use at least one of these dose optimization techniques: automated exposure control; mA and/or kV adjustment per patient size (includes targeted exams where dose is matched to clinical indication); or iterative reconstruction. Exam(s) a RAD:XR chest 1V in DI dept EXAM: XR CHEST 1V IN DI DEPT CLINICAL HISTORY: altered, confused. TECHNIQUE: 2D digital imaging was performed. COMPARISON: No exams were available for comparison FINDINGS: LUNGS: Clear. No pleural abnormality seen. HEART: Normal. MEDIASTINUM: Normal. OTHER FINDINGS: None. IMPRESSION: No acute pulmonary findings. DATA REPOSITORY: RADIATION DOSE DELIVERED: COMPARISON: No relevant prior studies available. FINDINGS: Brain: Normal. No hemorrhage. Unremarkable white matter. No mass effect. Ventricles: Normal. No ventriculomegaly. Bones/joints: Unremarkable. No acute fracture. Sinuses: Visualized sinuses are unremarkable. No fluid levels. Mastoid air cells: Visualized mastoid air cells are well aerated. Soft tissues: Unremarkable. IMPRESSION: No acute intracranial abnormality. TECHNIQUE: Imaging protocol: XR of the chest Views: 1 view. COMPARISON: No relevant prior studies available. FINDINGS: Lungs: Unremarkable. No consolidation. Pleural space: Unremarkable. No pleural effusion. No pneumothorax. Heart/Mediastinum: Unremarkable. No cardiomegaly. Bones/joints: Unremarkable. IMPRESSION: No acute findings. Dictated and Authenticated by: Jose Bruce MD. Exam(s) a MRI:MR brain wo/w EXAM: MR BRAIN WO/W CLINICAL HISTORY: AMS, h/o brain mass. TECHNIQUE: Multiplanar multisequence MRI was performed. COMPARISON: No exams were available for comparison FINDINGS: MR examination of brain was performed according to the usual protocol with additional post contrast axial and coronal T1 weighted imaging. There is no mass lesion or enhancing lesion of the brain. Note is made of an area of high signal on T2 weighted and FLAIR images measuring roughly 7 millimeters in greatest diameter of the subcortical white matter of the superior aspect of left frontal lobe near the midline. No associated enhancement. No evidence of dif fusion restriction. Susceptibility weighted imaging shows no evidence of hemorrhage. No other signal abnormality identified in the brain. The orbital and temporal bone structures appear intact. The pituitary appears intact. There is normal flow void in the [id number] vasculature. IMPRESSION: Solitary high signal focus in left frontal subcortical white matter as described above. Findings are nonspecific and could be associated with demyelinating process or inflammatory process. Clinical correlation requested and follow-up MRI recommended in 6 months. Exam(s) PROCEDURE INFORMATION: Exam: MR Head Without and With Contrast Exam date and time: 07/02/2019 4:09 PM Age: 34 years old Clinical indication: Altered mental status/memory loss; Confusion or disorientation; Patient HX: H/o brain mass, AMS TECHNIQUE: Imaging protocol: MR of the head without and with intravenous contrast. 3D rendering: MIP and/or 3D reconstructed images were created by the technologist. Contrast material: DOTAREM; Contrast volume: 10 ml; Contrast route: IV; COMPARISON: CT HEAD WO 07/01/2019 11:11 PM FINDINGS: Brain: Single small nonspecific nonenhancing focus of T2/FLAIR hyperintensity in the subcortical white matter of the medial superior left frontal lobe. No intracranial hemorrhage or extra-axial fluid collection. No evidence of mass effect or midline shift. No restricted diffusion to suggest acute infarct. No areas of abnormal enhancement. Ventricles: Ventricles, cisterns, and sulci are normal. Bones/joints: Unremarkable. Soft tissues: Unremarkable. Sinuses: Unremarkable. Mastoid air cells: No mastoid effusion. Orbits: Unremarkable. IMPRESSION: Single small nonenhancing focus of T2/FLAIR hyperintensity in the subcortical white matter of the medial superior left frontal lobe. Finding is nonspecific. Differential includes but is not limited to sequela of demyelinating disease, chronic small vessel ischemic change, vasculitis, or other chronic inflammatory white matter disease. Recommend neurology consultation. Labs on day of discharge: Labs from last 24 hours 07/04/19 07/02/19 07:30 00:45 Sodium 135 L Potassium 3.7 D Chloride 103 Carbon Dioxide 24.0 Anion Gap 8.0 BUN 8 Creatinine 0.47 L Estimated GFR/1.73 m2 >= 60.00 Glucose 101 Calcium 8.5 Magnesium 2.0 Path Cons Comment Preliminary micro results at discharge 07/02/19 00:50 Blood Culture - Preliminary Blood NO GROWTH 48 HOURS 07/02/19 07:55 Blood Culture - Preliminary Blood NO GROWTH 24 HOURS [facility] Medical History Anemia, chronic disease (Acute) Herpes (Acute) Low-grade chronic hyperbilirubinemia (Acute) Pulmonary embolism (Chronic ~2013) associated w/ childbirth in [address] 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
--- NOTE | 2019-07-04 13:35 | CMDISCH_ITS ---
LACE Index Scoring Tool - Questions: Length of Stay (in days): 3 Acuity (Admit via E.D.?): Yes E.D. Visits: 1 - Answers: Total Score: 7 Risk of Readmission: Low Risk Care Management Discharge Reason for Hospitalization: Encephalopathy, sickle cell crisis Discharge Plan: Shaylee will discharge to the care of her aunt, Jennifer Colon from [place], [place]. Jennifer and her retrieved her car from [place]. The plan is for Jennifer and her to bring Lilliana back to their home in [place] and then drive her down to [place], [place] on Sunday. Shaylee has a [facility] court hearing on Sunday regarding the custody of her children. She will follow up with her PCP next week, seek service connection at [facility] in [place] and work with [place] kauffman [facility] on further treatment planning. Patient/Family Education Needs: Review discharge instructions, discuss Ask Me Three.
--- NOTE | 2019-07-04 16:02 | CHAPLAIN ---
Shaylee asked to see me today and she requested a bible that is easy to read. I gave her a bible and some daily readings in booklet form. Shaylee's conversation was much more on track today and her thoughts more organized. She talked about how she got here, the [employer] [place] her [place], her believing that her kids were in the car with her. She remembered all that, but didn't remember leaving [place] and driving to [place]. Shaylee told me about her four children and showed me a video on her phone of one of her daughters doing her own cooking show. Shaylee said this daughter does a lot of the cooking for the family and she has raised her kids to be independent. Shaylee is now the age that her mom was when her mom . She talked about that that felt like for her. She also told me that she had a near- experience when she was with first baby and she remembers leaving her body, asking God why she would now just after having a baby, and then she returned to her body. Because of this experience, she believes God and [facility] place here where she needs to be. She was very grateful for help from nursing staff and care management.
== END 2019-07-04 11:51 | disposition home or self-care (01) | DRG 812 ==
LOC: ER 07-02 02:26 → MS 07-02 03:24
PROVIDERS: Internal Medicine; Admitting Provider Internal Medicine; Emergency Provider Student in an Organized Health Care Education/Training Program; Visit Provider Internal Medicine
DX: D57.00 Hb-SS disease with crisis, unspecified (principal); F23 Brief psychotic disorder; R41.82 Altered mental status, unspecified; E87.6 Hypokalemia; E83.42 Hypomagnesemia
CPT/HCPCS: 36415; 36430; 70553; 80048; 80053; 80307; 81025; 82805; 84145; 86850; 86900; 86901; 86920; 86945; 87040; 93005; 96360; 96361; 99220; 99223; 99232; 99239; 99255; 99285; NC; U0003; 70450; 71045; 80320; 80329; 81003; 82140; 82248; 82728; 83605; 83615; 83735; 84439; 84443; 84484; 85025; 85045; 85379; 85610; 85730; 86140; 93010; G0378; J1885; J2060; J3490; J9999; P9016